=== PATIENT | male | born 1975 | race Asian ===

== ENCOUNTER 2020-02-07 16:31 | Emergency (ER) | payer MEDICAID, OTHER ==
[~2020-02-07] VITALS: Ht 167.6 cm; Wt 95.5 kg
[2020-02-07] MEDS ORDERED: clindamycin 600mg/D5W 50ml 50 ML IV ONE (18:05)
[2020-02-07] MEDS ORDERED: normal saline 1000ML IV soln IV ONE (18:05)
[2020-02-07 18:40] LABS: BASOPHILS # (AUTO) 0.1 X10'3 (0-0.2); BASOPHILS % (AUTO) 0.4 % (0-1); EOSINOPHILS # (AUTO) 0.1 X10'3 (0-0.9); EOSINOPHILS % (AUTO) 0.8 % (0-6); HEMATOCRIT 50.7 % (42.0-52.0); HEMOGLOBIN 16.8 g/dl (14.0-17.9); LYMPHOCYTES # (AUTO) 1.2 X10'3 (1.1-4.8); LYMPHOCYTES % (AUTO) 8.3 % (21-51); MEAN CORPUSCULAR HEMOGLOBIN 27.3 PG (27.0-31.0); MEAN CORPUSCULAR HGB CONC 33.2 g/dL (33.0-36.5); MEAN CORPUSCULAR VOLUME 82.1 FL (78-98); MEAN PLATELET VOLUME 8.7 FL (7.4-10.4); MONOCYTES # (AUTO) 1.5 X10'3 (0-0.9); MONOCYTES % (AUTO) 10.3 % (2-12); NEUTROPHILS # (AUTO) 11.3 X10'3 (1.8-7.7); NEUTROPHILS % (AUTO) 80.2 % (42-75); PLATELET COUNT 280 X10'3 (140-440); RED BLOOD COUNT 6.17 X10'6 (4.70-6.10); RED CELL DISTRIBUTION WIDTH 12.7 % (11.5-14.5); WHITE BLOOD COUNT 14.1 X10'3 (4.5-11.0)
[2020-02-07 19:01] LABS: ALANINE AMINOTRANSFERASE 28 U/L (12-78); ALBUMIN 3.2 G/DL (3.4-5.0); ALBUMIN/GLOBULIN RATIO 0.6 (1.1-1.5); ALKALINE PHOSPHATASE 148 IU/L (46-116); ANION GAP 7 (8-16); ASPARTATE AMINO TRANSFERASE 21 U/L (10-37); BILIRUBIN,TOTAL 0.5 MG/DL (0.1-1.0); BLOOD UREA NITROGEN 10 MG/DL (7-18); CALCIUM 9.3 MG/DL (8.5-10.1); CHLORIDE 94 MMOL/L (99-107); CREATININE 1.25 MG/DL (0.60-1.10); POTASSIUM 4.1 MMOL/L (3.5-5.1); SODIUM 130 MMOL/L (135-145); TOTAL CARBON DIOXIDE 29.4 MMOL/L (24-32); TOTAL PROTEIN 8.5 G/DL (6.4-8.2); eGFR 62 ML/MIN
[2020-02-07 19:12] LABS: GLUCOSE 474 MG/DL (70-104)
[2020-02-07] MEDS ORDERED: normal saline 1000ml 1,000 ML IV ONE ×2 (19:25→20:00)
--- NOTE | 2020-02-07 19:56 | NUR ---
Blood sugar 322. Nathan De Oliveira notified. Additional liter of NS ordered.
[2020-02-07] MEDS ORDERED: NO HOME MEDS (19:59)
--- NOTE | 2020-02-07 20:16 | NUR ---
Patient up to the bathroom w/o problem
--- NOTE | 2020-02-07 20:58 | NUR ---
BS 301, Nathan De Oliveira notified.
[2020-02-07] MEDS ORDERED: CLIN300C70 PO (21:06)
[2020-02-07] MEDS ORDERED: BACDS PO (21:14)
[2020-02-07] MEDS ORDERED: CEPH250T PO (21:14)
[2020-02-07 21:22] VITALS: BP 157/87
== END 2020-02-07 21:24 | disposition home or self-care (01) ==
LOC: ER 16:32
DX: L03.116 Cellulitis of left lower limb (principal); M79.89 Other specified soft tissue disorders; R73.9 Hyperglycemia, unspecified; E87.1 Hypo-osmolality and hyponatremia; Z79.2 Long term (current) use of antibiotics
CPT/HCPCS: 36415; 80053; 82948; 83605; 84145; 85025; 87040; 96365; 99285; J7030; 96361; J3490

== ENCOUNTER 2024-09-07 15:10 | Emergency (ER) | payer MEDICAID, OTHER ==
[~2024-09-07] VITALS: Ht 167.6 cm; Wt 87.3 kg
[~2024-09-07 15:10] MED LIST: NO HOME MEDS
[2024-09-07 16:23] LABS: BASOPHILS # (AUTO) 0.1 X10'3 (0-0.2); EOSINOPHILS # (AUTO) 0.1 X10'3 (0-0.9); EOSINOPHILS % (AUTO) 1.3 % (0-6); HEMATOCRIT 47.3 % (42.0-52.0); HEMOGLOBIN 15.8 g/dl (14.0-17.9); LYMPHOCYTES # (AUTO) 1.2 X10'3 (1.1-4.8); LYMPHOCYTES % (AUTO) 12.6 % (21-51); MEAN CORPUSCULAR HEMOGLOBIN 27.2 PG (27.0-31.0); MEAN CORPUSCULAR HGB CONC 33.3 g/dL (33.0-36.5); MEAN CORPUSCULAR VOLUME 81.7 FL (78-98); MEAN PLATELET VOLUME 8.2 FL (7.4-10.4); MONOCYTES # (AUTO) 0.6 X10'3 (0-0.9); MONOCYTES % (AUTO) 6.4 % (2-12); NEUTROPHILS # (AUTO) 7.2 X10'3 (1.8-7.7); NEUTROPHILS % (AUTO) 78.7 % (42-75); PLATELET COUNT 538 X10'3 (140-440); RED BLOOD COUNT 5.79 X10'6 (4.70-6.10); RED CELL DISTRIBUTION WIDTH 13.8 % (11.5-14.5); WHITE BLOOD COUNT 9.2 X10'3 (4.5-11.0)
[2024-09-07 16:39] LABS: APTT 29 SECONDS (22-32); PROTHROMBIN TIME 10.7 SECONDS (9.0-12.0)
[2024-09-07] MEDS ORDERED: PRED20TA PO (16:48)
[2024-09-07] MEDS ORDERED: ACYC-129 PO (16:48)
[2024-09-07] MEDS ORDERED: HYDR-3965 PO (16:51)
[2024-09-07 16:59] VITALS: BP 132/78; PULSE 67; TEMP 98.1; O2SAT 97
[2024-09-07 17:00] VITALS: RESP 14
== END 2024-09-07 17:04 | disposition home or self-care (01) ==
LOC: ER 15:10
DX: G51.0 Bell's palsy (principal); B02.21 Postherpetic geniculate ganglionitis; H92.01 Otalgia, right ear; R79.1 Abnormal coagulation profile; Z79.2 Long term (current) use of antibiotics; Z79.899 Other long term (current) drug therapy
CPT/HCPCS: 36415; 70450; 71045; 85025; 85610; 85730; 93005; 99285

== ENCOUNTER 2024-09-09 00:27 | Emergency (ER) | payer MEDICAID ==
[~2024-09-09] VITALS: Ht 167.6 cm; Wt 90.9 kg
[~2024-09-09 00:27] MED LIST changes: +ACYC-129 PO; +HYDR-3965 PO; +PRED20TA PO
[2024-09-09] MEDS ORDERED: GABA-530 PO (00:48)
[2024-09-09] MEDS: gabapentin 300mg capsule PO ONE (00:52)
[2024-09-09] MEDS: HYDROcodone/acetaminophen 10/325mg tab PO ONE (00:52)
[2024-09-09] MEDS: naproxen 500mg tablet PO ONE (00:54)
[2024-09-09 00:56] VITALS: BP 162/94; PULSE 101; RESP 18; TEMP 98.6; O2SAT 96
== END 2024-09-09 00:57 | disposition home or self-care (01) ==
LOC: ER 00:27
DX: G62.9 Polyneuropathy, unspecified (principal); G51.0 Bell's palsy
CPT/HCPCS: 99284

== ENCOUNTER 2024-10-18 18:14 | Inpatient (IN) | payer MEDICAID ==
[~2024-10-18] VITALS: Ht 167.6 cm; Wt 99.7 kg
[~2024-10-18 18:14] MED LIST changes: -ACYC-129 PO; +GABA-530 PO; -HYDR-3965 PO; -PRED20TA PO
[2024-10-18 18:48] LABS: BASOPHILS # (AUTO) 0.1 X10'3 (0-0.2); BASOPHILS % (AUTO) 0.9 % (0-1); EOSINOPHILS # (AUTO) 0.1 X10'3 (0-0.9); EOSINOPHILS % (AUTO) 1.1 % (0-6); HEMATOCRIT 48.4 % (42.0-52.0); HEMOGLOBIN 15.9 g/dl (14.0-17.9); LYMPHOCYTES # (AUTO) 1.2 X10'3 (1.1-4.8); LYMPHOCYTES % (AUTO) 14.4 % (21-51); MEAN CORPUSCULAR HEMOGLOBIN 27.1 PG (27.0-31.0); MEAN CORPUSCULAR HGB CONC 32.9 g/dL (33.0-36.5); MEAN CORPUSCULAR VOLUME 82.3 FL (78-98); MEAN PLATELET VOLUME 8.2 FL (7.4-10.4); MONOCYTES # (AUTO) 0.6 X10'3 (0-0.9); MONOCYTES % (AUTO) 7.3 % (2-12); NEUTROPHILS # (AUTO) 6.1 X10'3 (1.8-7.7); NEUTROPHILS % (AUTO) 76.3 % (42-75); PLATELET COUNT 381 X10'3 (140-440); RED BLOOD COUNT 5.88 X10'6 (4.70-6.10); RED CELL DISTRIBUTION WIDTH 13.9 % (11.5-14.5)
[2024-10-18 19:07] LABS: ALANINE AMINOTRANSFERASE 30 U/L (12-78); ALBUMIN 1.6 G/DL (3.4-5.0); ALBUMIN/GLOBULIN RATIO 0.3 (1.1-1.5); ALKALINE PHOSPHATASE 181 IU/L (46-116); ANION GAP 4 (8-16); ASPARTATE AMINO TRANSFERASE 29 U/L (10-37); BILIRUBIN,TOTAL 0.5 MG/DL (0.1-1.0); BLOOD UREA NITROGEN 14 MG/DL (7-18); BUN/CREATININE RATIO 9.6 (10.0-20.0); CALCIUM 8.4 MG/DL (8.5-10.1); CHLORIDE 101 MMOL/L (99-107); CREATININE 1.46 MG/DL (0.60-1.10); GLUCOSE 329 MG/DL (70-104); POTASSIUM 4.1 MMOL/L (3.5-5.1); PRO BRAIN NATRIURETIC PEPTIDE 11212 PG/ML (0-125); SODIUM 136 MMOL/L (135-145); TOTAL CARBON DIOXIDE 30.7 MMOL/L (24-32); TOTAL PROTEIN 6.6 G/DL (6.4-8.2); eCRCL 54 ML/MIN; eGFR 51 ML/MIN
[2024-10-18] MEDS: enalaprilat 1.25mg/ml 2ml vial IV ONE (19:51)
[2024-10-18] MEDS: aspirin 81mg tab.chew PO ONE (19:51)
[2024-10-18] MEDS: nitroGLYCERIN 0.4mg/hour patch TD ONE (19:51)
[2024-10-18] MEDS: carVEDilol 12.5mg tablet PO SCH (19:51)
[2024-10-18] MEDS: furosemide 10 MG/1 ML 10ml inj IV ONE ×2 (19:54→20:44)
[2024-10-18] MEDS ORDERED: magnesium Cl slow-release 64mg tablet PO PRN (20:35)
[2024-10-18] MEDS ORDERED: magnesium sulf-water 4G/100mL 100 ML IV PRN (20:35)
[2024-10-18] MEDS ORDERED: potassium Cl 20 mEq SR tablet PO PRN (20:35)
[2024-10-18] MEDS ORDERED: potassium Cl 40MEQ/1/2NS 520ml 520 ML IV PRN (20:35)
[2024-10-18] MEDS ORDERED: ondansetron/PF 4mg/2ml inj IV PRN (20:35)
[2024-10-18] MEDS ORDERED: mag hydrox/Alum hydrox/simeth 30ml oral suspension PO PRN (20:35)
[2024-10-18] MEDS ORDERED: acetaminophen 325mg tablet PO PRN ×2 (20:35)
[2024-10-18] MEDS ORDERED: magnesium sulf-water 2g/50mL 50 ML IV PRN (20:35)
[2024-10-18] MEDS ORDERED: magnesium hydroxide 30ml (MOM) UD suspension PO PRN (20:35)
[2024-10-18] MEDS ORDERED: glucagon, human recombinant 1mg kit SUBCUT PRN (20:50)
[2024-10-18] MEDS ORDERED: DEXTROSE 15 GM of carb/4 tabs (each vial/BOTTLE has 4 tablets) PO PRN (20:50)
[2024-10-18] MEDS ORDERED: dextrose 50%-water 50ml dispensing syringe IV PRN ×2 (20:50)
[2024-10-18] MEDS: potassium Cl 20 mEq SR tablet PO STA (21:02)
[2024-10-18] MEDS: labetalol 20mg/4ml (5mg/ml) syringe IV ONE (21:14)
[2024-10-18 21:25] LABS: HEMOGLOBIN A1C > 12.0 % (4.5-6.2)
[2024-10-18] MEDS: levoFLOXACIN-Levaquin 750MG/D5 150 ML IV STA (21:42)
[2024-10-18] MEDS: insulin glargine (Lantus) VIAL- multi-dose SQ SCH (22:17)
[2024-10-18 22:44] LABS: BILIRUBIN,URINE NEGATIVE (Neg); CLARITY,URINE CLEAR (Clear); COLOR,URINE YELLOW (Yellow); GLUCOSE, URINE >=1000 mg/dl (Neg); KETONES,URINE NEGATIVE (Neg); LEUKOCYTE ESTERASE ,URINE NEGATIVE (Neg); OCCULT BLOOD,URINE MODERATE (Neg); PH,URINE 6.5 (4.8-8.0); PROTEIN,URINE >=300 mg/dl (Neg); UROBILINOGEN,URINE 0.2 E.U/dL (0.2-1.0)
[2024-10-18] MEDS: INSULIN LISPRO 100 UNIT/ML INSULN.PEN MULTI-DOSE SQ SCH (22:44)
[2024-10-18 22:52] LABS: URINE AMPHETAMINE SCREEN POSITIVE (Neg); URINE BARBITUATE SCREEN NEGATIVE (Neg); URINE BENZODIAZEPINES SCREEN NEGATIVE (Neg); URINE CANNABINOID SCREEN NEGATIVE (Neg); URINE COCAINE SCREEN NEGATIVE (Neg); URINE METHADONE SCREEN NEGATIVE (Neg); URINE OPIATE SCREEN NEGATIVE (Neg); URINE PHENCYCLIDINE SCREEN NEGATIVE (Neg)
[2024-10-18 22:55] LABS: NITRITES, URINE NEGATIVE (Neg); UA COLLECTION TYPE NON-SPECIFIED
[2024-10-18 22:56] LABS: BACTERIA,URINE FEW /HPF (Neg); HYALINE CASTS 0-3 /LPF (NEGATIVE); SQUAMOUS EPITHELIAL CELL,UR FEW /LPF (FEW); WBC,URINE 0-4 /HPF (0-4)
[2024-10-19 03:00] LABS: BASOPHILS # (AUTO) 0.1 X10'3 (0-0.2); BASOPHILS % (AUTO) 0.9 % (0-1); EOSINOPHILS # (AUTO) 0.1 X10'3 (0-0.9); HEMATOCRIT 44.1 % (42.0-52.0); HEMOGLOBIN 14.8 g/dl (14.0-17.9); LYMPHOCYTES # (AUTO) 1.1 X10'3 (1.1-4.8); LYMPHOCYTES % (AUTO) 13.2 % (21-51); MEAN CORPUSCULAR HEMOGLOBIN 27.3 PG (27.0-31.0); MEAN CORPUSCULAR HGB CONC 33.6 g/dL (33.0-36.5); MEAN CORPUSCULAR VOLUME 81.4 FL (78-98); MEAN PLATELET VOLUME 8.3 FL (7.4-10.4); MONOCYTES # (AUTO) 0.7 X10'3 (0-0.9); MONOCYTES % (AUTO) 8.4 % (2-12); NEUTROPHILS # (AUTO) 6.7 X10'3 (1.8-7.7); NEUTROPHILS % (AUTO) 76.5 % (42-75); PLATELET COUNT 359 X10'3 (140-440); RED BLOOD COUNT 5.42 X10'6 (4.70-6.10); RED CELL DISTRIBUTION WIDTH 13.8 % (11.5-14.5); WHITE BLOOD COUNT 8.7 X10'3 (4.5-11.0)
[2024-10-19 03:23] LABS: ALANINE AMINOTRANSFERASE 26 U/L (12-78); ALBUMIN 1.5 G/DL (3.4-5.0); ALBUMIN/GLOBULIN RATIO 0.3 (1.1-1.5); ALKALINE PHOSPHATASE 163 IU/L (46-116); ANION GAP 3 (8-16); ASPARTATE AMINO TRANSFERASE 28 U/L (10-37); BILIRUBIN,TOTAL 0.3 MG/DL (0.1-1.0); BLOOD UREA NITROGEN 18 MG/DL (7-18); BUN/CREATININE RATIO 10.9 (10.0-20.0); CALCIUM 8.4 MG/DL (8.5-10.1); CHLORIDE 101 MMOL/L (99-107); CREATININE 1.65 MG/DL (0.60-1.10); GLUCOSE 320 MG/DL (70-104); MAGNESIUM 1.7 MG/DL (1.5-2.4); PHOSPHORUS 4.2 MG/DL (2.3-4.5); POTASSIUM 4.7 MMOL/L (3.5-5.1); SODIUM 135 MMOL/L (135-145); TOTAL CARBON DIOXIDE 31.4 MMOL/L (24-32); TOTAL PROTEIN 6.3 G/DL (6.4-8.2); eCRCL 48 ML/MIN; eGFR 44 ML/MIN
[2024-10-19 04:11] LABS: FREE T4 (FREE THYROXINE) 0.96 NG/DL (0.73-1.40); THYROID STIMULATING HORMONE 5.01 ulU/ml (0.34-4.50)
[2024-10-19 05:32] LABS: APTT 26 SECONDS (22-32); INR 1.1 INR; PROTHROMBIN TIME 11.4 SECONDS (9.0-12.0)
[2024-10-19] MEDS: heparin, porcine 5000 units/ml vial SQ SCH (07:32)
[2024-10-19] MEDS: docusate sod 100mg capsule PO SCH (07:32)
[2024-10-19] MEDS ORDERED: furosemide 40mg tablet PO SCH (08:00)
[2024-10-19] MEDS: K and/or MAG REPLACEMENT MC SCH (08:01)
[2024-10-19] MEDS: furosemide 40mg/4ml inj IV SCH (08:47)
[2024-10-19] MEDS: INSULIN LISPRO 100 UNIT/ML INSULN.PEN MULTI-DOSE SQ SCH (08:49)
[2024-10-19] MEDS ORDERED: INSULIN LISPRO 100 UNIT/ML INSULN.PEN MULTI-DOSE SQ SCH (09:00)
[2024-10-19] MEDS: carVEDilol 3.125mg tablet PO SCH (11:55)
[2024-10-19] MEDS: EMPAGLIFLOZIN 10 MG TABLET PO SCH (11:55)
[2024-10-19 19:30] VITALS: BP 176/110; PULSE 93; RESP 16; TEMP 98.3; O2SAT 99
[2024-10-19 20:00] VITALS: RESP 16; O2SAT 99
[2024-10-19] MEDS: levoFLOXACIN-Levaquin 750MG/D5 150 ML IV SCH (20:29)
[2024-10-19] MEDS: insulin glargine (Lantus) VIAL- multi-dose SQ SCH (22:06)
[2024-10-20] MEDS: DEXTROSE 15 GM of carb/4 tabs (each vial/BOTTLE has 4 tablets) PO PRN (01:23)
[2024-10-20 06:00] VITALS: BP 172/98; PULSE 84; RESP 18; TEMP 97.8; O2SAT 97
[2024-10-20 06:13] LABS: BASOPHILS # (AUTO) 0.1 X10'3 (0-0.2); BASOPHILS % (AUTO) 0.9 % (0-1); EOSINOPHILS # (AUTO) 0.1 X10'3 (0-0.9); HEMATOCRIT 40.5 % (42.0-52.0); HEMOGLOBIN 13.7 g/dl (14.0-17.9); LYMPHOCYTES # (AUTO) 1.2 X10'3 (1.1-4.8); LYMPHOCYTES % (AUTO) 12.9 % (21-51); MEAN CORPUSCULAR HEMOGLOBIN 27.5 PG (27.0-31.0); MEAN CORPUSCULAR HGB CONC 33.9 g/dL (33.0-36.5); MEAN CORPUSCULAR VOLUME 81.1 FL (78-98); MEAN PLATELET VOLUME 8.7 FL (7.4-10.4); MONOCYTES # (AUTO) 0.8 X10'3 (0-0.9); MONOCYTES % (AUTO) 8.8 % (2-12); NEUTROPHILS # (AUTO) 6.9 X10'3 (1.8-7.7); NEUTROPHILS % (AUTO) 76.4 % (42-75); PLATELET COUNT 338 X10'3 (140-440); RED BLOOD COUNT 4.99 X10'6 (4.70-6.10); RED CELL DISTRIBUTION WIDTH 13.9 % (11.5-14.5)
[2024-10-20 06:50] LABS: ALANINE AMINOTRANSFERASE 28 U/L (12-78); ALBUMIN 1.3 G/DL (3.4-5.0); ALBUMIN/GLOBULIN RATIO 0.3 (1.1-1.5); ALKALINE PHOSPHATASE 151 IU/L (46-116); ANION GAP 7 (8-16); ASPARTATE AMINO TRANSFERASE 35 U/L (10-37); BILIRUBIN,TOTAL 0.3 MG/DL (0.1-1.0); BLOOD UREA NITROGEN 27 MG/DL (7-18); BUN/CREATININE RATIO 14.5 (10.0-20.0); CALCIUM 8.1 MG/DL (8.5-10.1); CHLORIDE 101 MMOL/L (99-107); CREATININE 1.86 MG/DL (0.60-1.10); GLUCOSE 117 MG/DL (70-104); MAGNESIUM 1.7 MG/DL (1.5-2.4); PHOSPHORUS 5.5 MG/DL (2.3-4.5); POTASSIUM 3.3 MMOL/L (3.5-5.1); SODIUM 137 MMOL/L (135-145); TOTAL CARBON DIOXIDE 29.4 MMOL/L (24-32); TOTAL PROTEIN 5.7 G/DL (6.4-8.2); eCRCL 42 ML/MIN; eGFR 38 ML/MIN
[2024-10-20] MEDS: spironolactone 25 MG tablet PO SCH (09:00)
[2024-10-20] MEDS: sacubitril/valsartan 24mg-26mg tablet PO SCH (09:01)
[2024-10-20 10:22] LABS: INR 1.1 INR
[2024-10-20 10:39] LABS: APTT 29 SECONDS (22-32)
[2024-10-20 11:00] VITALS: BP 176/95; PULSE 85; RESP 16; TEMP 97.3; O2SAT 97
[2024-10-20] MEDS: hydrALAZINE 20mg/ml inj. IV ONE (11:49)
[2024-10-20] MEDS ORDERED: hydrALAZINE 20mg/ml inj. IV PRN (12:45)
[2024-10-20] MEDS: INSULIN LISPRO 100 UNIT/ML INSULN.PEN MULTI-DOSE SQ SCH (13:43)
[2024-10-20] MEDS ORDERED: levoFLOXACIN-Levaquin 750MG/D5 150 ML IV SCH (17:03)
[2024-10-20 18:00] VITALS: BP 139/82; PULSE 87; RESP 14; TEMP 97.6; O2SAT 98
[2024-10-20] MEDS: potassium Cl 20 mEq SR tablet PO PRN (21:02)
[2024-10-20 22:00] VITALS: BP 148/85; PULSE 80; RESP 14; TEMP 98.6; O2SAT 97
[2024-10-21 06:00] VITALS: BP 153/91; PULSE 80; RESP 14; TEMP 98.4; O2SAT 96
[2024-10-21 06:08] LABS: BASOPHILS # (AUTO) 0.1 X10'3 (0-0.2); BASOPHILS % (AUTO) 0.8 % (0-1); EOSINOPHILS # (AUTO) 0.1 X10'3 (0-0.9); EOSINOPHILS % (AUTO) 1.4 % (0-6); HEMATOCRIT 45.1 % (42.0-52.0); HEMOGLOBIN 15.2 g/dl (14.0-17.9); LYMPHOCYTES # (AUTO) 1.5 X10'3 (1.1-4.8); LYMPHOCYTES % (AUTO) 19.7 % (21-51); MEAN CORPUSCULAR HEMOGLOBIN 27.2 PG (27.0-31.0); MEAN CORPUSCULAR HGB CONC 33.6 g/dL (33.0-36.5); MEAN CORPUSCULAR VOLUME 81.1 FL (78-98); MEAN PLATELET VOLUME 8.6 FL (7.4-10.4); MONOCYTES # (AUTO) 0.8 X10'3 (0-0.9); MONOCYTES % (AUTO) 10.1 % (2-12); NEUTROPHILS # (AUTO) 5.2 X10'3 (1.8-7.7); PLATELET COUNT 368 X10'3 (140-440); RED BLOOD COUNT 5.56 X10'6 (4.70-6.10); RED CELL DISTRIBUTION WIDTH 13.6 % (11.5-14.5); WHITE BLOOD COUNT 7.7 X10'3 (4.5-11.0)
[2024-10-21 06:21] LABS: APTT 29 SECONDS (22-32); INR 1.1 INR; PROTHROMBIN TIME 11.1 SECONDS (9.0-12.0)
[2024-10-21 06:59] LABS: ALANINE AMINOTRANSFERASE 20 U/L (12-78); ALBUMIN 1.4 G/DL (3.4-5.0); ALBUMIN/GLOBULIN RATIO 0.3 (1.1-1.5); ALKALINE PHOSPHATASE 139 IU/L (46-116); ANION GAP 8 (8-16); ASPARTATE AMINO TRANSFERASE 24 U/L (10-37); BILIRUBIN,TOTAL 0.3 MG/DL (0.1-1.0); BLOOD UREA NITROGEN 30 MG/DL (7-18); BUN/CREATININE RATIO 16.8 (10.0-20.0); CALCIUM 8.2 MG/DL (8.5-10.1); CHLORIDE 100 MMOL/L (99-107); CREATININE 1.79 MG/DL (0.60-1.10); GLUCOSE 160 MG/DL (70-104); PHOSPHORUS 5.3 MG/DL (2.3-4.5); POTASSIUM 3.7 MMOL/L (3.5-5.1); SODIUM 136 MMOL/L (135-145); TOTAL CARBON DIOXIDE 27.7 MMOL/L (24-32); TOTAL PROTEIN 5.9 G/DL (6.4-8.2); eCRCL 44 ML/MIN; eGFR 40 ML/MIN
[2024-10-21 07:34] LABS: MAGNESIUM 1.9 MG/DL (1.5-2.4)
[2024-10-21 08:00] VITALS: RESP 14; O2SAT 96
[2024-10-21 08:12] VITALS: BP_SYST 153; PULSE 80
[2024-10-21] MEDS ORDERED: CARV-164 PO (12:03)
[2024-10-21] MEDS ORDERED: EMPA10TA PO (12:03)
[2024-10-21] MEDS ORDERED: SACU1TAB PO (12:03)
[2024-10-21] MEDS ORDERED: SPIR25TA PO (12:03)
[2024-10-21] MEDS ORDERED: INSU100V11 SQ (13:15)
[2024-10-21] MEDS ORDERED: FURO-150 PO (13:15)
[2024-10-21] MEDS ORDERED: LANTUS SUBCUT (13:15)
[2024-10-21] MEDS ORDERED: LEVO-65 PO (13:46)
== END 2024-10-21 17:13 | disposition home or self-care (01) | DRG 137 ==
LOC: ER 18:15 → ORTHO 4S 20:37 → ED HOLD 20:37 → UNDOADMIN 20:37 → ED HOLD 10-19 00:16 → UNDOADMIN 10-19 07:06 → ED HOLD 10-19 07:06 → ORTHO 4S 10-19 18:42 → ED HOLD 10-19 18:42
PROVIDERS: ADMIT Surgery; ATTEND Internal Medicine
DX: J15.69 Pneumonia due to other Gram-negative bacteria (principal); N17.0 Acute kidney failure with tubular necrosis; I21.A1 Myocardial infarction type 2; I50.21 Acute systolic (congestive) heart failure; I11.0 Hypertensive heart disease with heart failure; I42.0 Dilated cardiomyopathy; Z20.822 Contact with and (suspected) exposure to COVID-19; J15.9 Unspecified bacterial pneumonia; I07.1 Rheumatic tricuspid insufficiency; F15.90 Other stimulant use, unspecified, uncomplicated; E11.21 Type 2 diabetes mellitus with diabetic nephropathy; Z72.0 Tobacco use; Z79.899 Other long term (current) drug therapy
CPT/HCPCS: 36415; 71045; 80053; 80305; 81001; 82570; 82948; 83036; 83735; 83880; 83935; 84100; 84133; 84145; 84300; 84439; 84443; 84484; 85025; 85379; 85610; 85730; 87040; 87081; 87207; 87502; 87503; 87811; 93005; 93306; 93970; 96365; 96375; 97110; 97116; 97161; 99285; G0378; J0360; J1644; J1815; J1940; J1956; J3490